=== PATIENT | male | born 1950 | race Caucasian/White ===

== ENCOUNTER 2018-07-22 07:44 | Day surgery (SDC) | payer OTHER ==
[2018-07-22] MEDS ORDERED: LR 1,000 ML IV ONE (08:01)
[2018-07-22] MEDS ORDERED: LIDOCAINE 1% 2 ML INJ ID PRN (08:01)
[2018-07-22] MEDS ORDERED: LIDOCAINE 1% 300 MG/30 ML SDV ONE (08:11)
[2018-07-22] MEDS ORDERED: BACITRACIN ZINC 14.2 GM OINTTUBE TP ONE (08:11)
[2018-07-22] MEDS ORDERED: EPINEPHrine 30 MG/30 ML MDV (0.1 MG/0.1 ML) ONE (08:12)
[2018-07-22] MEDS ORDERED: METHYLENE BLUE 0.5% 50 MG/10 ML AMP ONE (08:12)
[2018-07-22] MEDS ORDERED: MIDAZOLAM 2 MG/2 ML VIAL IVP ONE (09:18)
[2018-07-22] MEDS ORDERED: PROPOFOL 200 MG/20 ML VIAL ONE (09:19)
[2018-07-22] MEDS ORDERED: fentaNYL 100 MCG/2 ML INJ ONE ×2 (09:20→12:00)
[2018-07-22] MEDS ORDERED: CLINDAMYCIN 900 MG/DEXTROSE 50 ML IV ONE (09:21)
[2018-07-22] MEDS ORDERED: DEXAMETHASONE 10 MG/ML VIAL IVP ONE (09:21)
--- NOTE | 2018-07-22 09:21 | PDANEPAE ---
ANE Past Medical History - Cardiovascular History Hx Hypertension: No Hx Arrhythmias: No Hx Chest Pain: No Hx Coronary Artery / Peripheral Vascular Disease: No Hx CHF / Valvular Disease: No Hx Palpitations: No - Pulmonary History Hx COPD: No Hx Asthma/Reactive Airway Disease: No Hx Recent Upper Respiratory Infection: No Hx Oxygen in Use at Home: No Hx Sleep Apnea: Yes Sleep Apnea Screening Result - Last Documented: Positive - Neurologic History Hx Cerebrovascular Accident: No Hx Seizures: No Hx Dementia: No - Endocrine History Hx Diabetes: No - Renal History Hx Renal Disorders: No - Liver History Hx Hepatic Disorders: Yes Hepatic History Comment: hep c recieved treatment and is now clear - Neurological & Psychiatric Hx Hx Neurological and Psychiatric Disorders: Yes Neurological / Psychiatric History Comment: depression/anxiety - Cancer History Hx Cancer: No - Congenital Disorder History Hx Congenital Disorders: No - GI History Hx Gastrointestinal Disorders: No - Other Health History Other Health History: raspy voice - Chronic Pain History Chronic Pain: Yes (LATE STAGE ARTHRITIS BILAT GREAT TOES) - Surgical History Prior Surgeries: none in last 5 yrs. right rotator cuff repair 2007 ANE Review of Systems Review of Systems: - Exercise capacity METS (RN): 5 METS ANE Patient History - Allergies Allergies/Adverse Reactions: Penicillins Allergy (Verified 07/10/18 16:47) Rash IV contrast Allergy (Uncoded 07/10/18 16:47) - Home Medications Home medications: home medication list seen and reviewed Home Medications: Adderall 10 MG (*) 07/10/18 [Last Taken 07/20/18] Aleve 07/10/18 [Last Taken 07/15/18] Buspar (*) 07/10/18 [Last Taken 07/21/18 10:00] Flomax 07/10/18 [Last Taken 07/21/18 22:00] Wellbutrin 100mg (*) 07/10/18 [Last Taken 07/21/18 10:00] Zyrtec 07/10/18 [Last Taken 07/21/18 10:00] - NPO status NPO Status: no food or drink >8 hours NPO Since - Liquids (Date): 07/21/18 NPO Since - Liquids (Time): 23:00 NPO Since - Solids (Date): 07/21/18 NPO Since - Solids (Time): 19:00 - Anes Hx Anes Hx: no prior problems - Smoking Hx Smoking Status: Never smoked - Family Anes Hx Family Hx Anesthesia Complications: slow to wake up ANE Labs/Vital Signs - Vital Signs Blood Pressure: 127/84 Heart Rate: 65 Respiratory Rate: 16 O2 Sat (%): 95 Height: 185.42 cm Weight: 86.183 kg ANE Physical Exam - Airway Neck exam: FROM Mallampati Score: Class 2 - Pulmonary Pulmonary: no respiratory distress, no rales or rhonchi, clear to auscultation - Cardiovascular Cardiovascular: regular rate and rhythym, no murmur, rub, or gallop - ASA Status ASA Status: II ANE Anesthesia Plan Anesthesia Plan: general endotracheal anesthesia
--- NOTE | 2018-07-22 09:21 | PDHPUP ---
History & Physical Update H&P update statement: This history and physical update is based on an assessment of the patient which was completed after admission or registration (within 24 hours), but prior to the surgery/procedure. H&P update: H&P reviewed & patient examined, no change in patient's condition since H&P completed (plan for septoplasty, smr turbs and latera B)
[2018-07-22] MEDS ORDERED: LIDOCAINE 2% 2 ML INJ ONE (09:23)
[2018-07-22] MEDS ORDERED: DEXAMETHASONE 4 MG/ML VIAL ONE ×3 (09:23)
[2018-07-22] MEDS ORDERED: ROCURONIUM 50 MG/5 ML VIAL ONE (09:23)
[2018-07-22] MEDS ORDERED: OXYMETAZOLINE 30 ML NASAL SPRAY ONE (09:43)
[2018-07-22] MEDS ORDERED: LIDO/EPI 2% **for epidural** 20 ML SDV ONE (09:56)
[2018-07-22] MEDS ORDERED: LIDOCAINE 2% 100 MG/5 ML SYR ONE (09:57)
[2018-07-22] MEDS ORDERED: MINERAL OIL 10 ML VIAL ONE (10:35)
[2018-07-22] MEDS ORDERED: NEOSTIGMINE METHYLSULFATE 5 MG/5 ML SYR ONE (10:35)
[2018-07-22] MEDS ORDERED: GLYCOPYRROLATE 0.2 MG/1 ML VIAL ONE ×2 (10:35)
[2018-07-22] MEDS ORDERED: ONDANSETRON 4 MG/2 ML VIAL ONE (10:35)
[2018-07-22] MEDS ORDERED: LABETALOL HCL 5 MG/ML 20 ML MDV IVP PRN (11:17)
[2018-07-22] MEDS ORDERED: oxyCODONE IR 5 MG TAB PO PRN (11:17)
[2018-07-22] MEDS ORDERED: ONDANSETRON 4 MG/2 ML VIAL IVP PRN (11:17)
[2018-07-22] MEDS ORDERED: LR 500 ML IV PRN (11:17)
[2018-07-22] MEDS ORDERED: ACETAMINOPHEN 500 MG TAB PO PRN (11:17)
[2018-07-22] MEDS ORDERED: fentaNYL 100 MCG/2 ML INJ IVP PRN (11:17)
[2018-07-22] MEDS ORDERED: PROMETHAZINE HCL 25 MG/ML INJ IVP PRN (11:17)
[2018-07-22] MEDS ORDERED: HYDROCODONE/APAP 5/325 TAB PO PRN (11:17)
[2018-07-22] MEDS ORDERED: NALOXONE HCL 0.4 MG/ML INJ IVP PRN (11:17)
--- NOTE | 2018-07-22 12:00 | POSTANESTH ---
Post Anesthetic Evaluation Cardiovascular Status: Normal, Stable, Similar to Pre-Op Cond Respiratory Status: Normal, Stable, Similar to Pre-op Cond. Level of Consciousness/Mental Status: Can Participate in Eval, Mildly Sleepy, Arousable Pain Control: Adequate, Prn Tx Ordered Nausea/Vomiting Control: Adequate, Prn Tx Ordered Complications Possibly Related to Anesthesia: None Noted
[2018-07-22] MEDS ORDERED: HYDROCODONE/APAP 5/325 TAB ONE (12:21)
[2018-07-22 15:32] VITALS: BP 117/77
--- NOTE | 2018-07-29 12:04 | GOP ---
DATE OF OPERATION: 07/22/2018 SURGEON: Rosario Lopez MD ANESTHESIA: General. PREOPERATIVE DIAGNOSIS: 1. Nasal obstruction. 2. Deviated nasal septum. 3. Enlarged turbinates bilaterally. 4. Nasal valve collapse bilaterally. POSTOPERATIVE DIAGNOSIS: 1. Nasal obstruction. 2. Deviated nasal septum 3. Enlarged turbinates bilaterally. 4. Nasal valve collapse bilaterally. PROCEDURE PERFORMED: 1. Endoscopically-assisted septoplasty. 2. Submucous resection of the inferior turbinates bilaterally. 3. Latera placement bilaterally. ESTIMATED BLOOD LOSS: Minimal. COMPLICATIONS: None. FINDINGS: The patient was found to have a deviated nasal septum, especially caudally to the left. He did have a large spur inferiorly along the right side that was obstructing on the right. He had moderately enlarged turbinates bilaterally, as well as some internal valve collapse on both sides. It was felt he would benefit from the above procedure. DESCRIPTION OF PROCEDURE: The patient was first seen in the preoperative area, where informed consent was obtained. He was then brought back to operating room , where Anesthesia sedated and intubated him. The bed was turned 90 degrees and he was prepped and draped in a sterile fashion. A universal time-out protocol was performed. Once this was confirmed, I then placed some epi-soaked pledgets within the nares. Once this had sufficient time to act, these were removed and then anterior rhinoscopy was performed, noting the above findings. I initially used some 2% lidocaine with 1:200,000 epinephrine. I injected this into the septum on both sides, as well as the head of the inferior turbinates on both sides. Once this was done and had sufficient time to act, these were removed a the 0 degree scope was used to evaulate both sides of the nose. Then a left-sided hemitransfixion incision was made and a Nereida instrument was used to elevate a mucoperichondrial flap back past the bony cartilaginous junction. He did have a caudal deflection to the left, which then deflected more to the right more posteriorly, along with a large septal spur on the right. Once I had elevated the mucoperichondrial flap on the left past the bony cartilaginous junction, the bony cartilaginous junction was dislocated inferiorly with a Nereida, and then a D knife was used to make an incision from superior to inferior, and posterior to anterior, thereby releasing a square of cartilage. I did take care to leave a centimeter strut dorsally and caudally. The Nereida was then used to elevate the mucoperichondrium off the right side of the cartilage that had been resected until it was completely released and this cartilage was removed. It was sent in some saline for saving in case of need. After this was done, the 0-degree scope was used through the hemitransfixion incision to help with the elevation of the flap more posteriorly. This was done on both sides until the bone was isolated. A double-action rongeur was used to remove the bone that was obstructing until this was midline. He then still had a fairly large spur to the right. A Nereida was used under direct visualization, as well as with the scope to completely release the mucoperichondrium and mucoperiosteal off the bone on both sides. Once this was done, a 2 mm osteotome was used to remove the spur as a whole and this was removed. At this point, the 0-degree scope was used to evaluate the nasal cavity bilaterally. He was noted to be significantly more patent on both sides with removal of the offending septal cartilage and bone. At this point, a 5-0 plain gut on a Red needle was used to place quilting sutures through and through the septum, and then a 4-0 chromic was used to close the hemitransfixion incision using an interrupted fashion. Next, the turbinate blade was placed on the microdebrider and then a small stab incision was made on the left side under direct visualization with the scope, and the turbinate blade was used to perform a submucous resection along the length of the turbinate on the left side, noting this under direct visualization. Once this was done, this was removed and then the same thing was done on the right side along the length of the turbinate. The debrider was removed and then the turbinate was first infractured and then outfractured using a [place], thereby giving significantly more patency to the nasal cavity on both sides. At this point, the 0-degree scope was then used to evaluate the nasal cavity on both sides and he still had slightly bulky posterior inferior turbinates, so suction cautery on a low to intermediate setting was used to cauterize just the very posterior aspect of the turbinate to shrink this down until he had significant patency posteriorly. At this point, the nasal cavity was irrigated out copiously with normal saline and suctioned clear. He had no active bleeding. At this point, I turned my attention to the nasal valve region. I initially used the implant marker to gera out the site of the most distal point of the implant between the dorsal point of the nose and the medial canthus, first on the left and then the right. I also marked the site at the nostril sill where the implant would be inserted from. Once this was done, about 0.5 cc of the 2% lidocaine with 1:200,000 was injected at the nasal sill and along the course of the proposed implant on both sides. At this point, I then allowed some time to let this lidocaine resorb some. Once this had sufficient time to act, the Latera implant was placed in the delivery device and set up. I then used a double-prong skin hook, first on the right side to place some traction over the sill, and then the implant cannula was placed at a 90-degree angle down toward the piriform aperture. Once this was in proper position, it was then angled up over the bone and cartilage, but under the skin while I was tenting the skin, noticing proper placement. Once this distally was at the distal most point, the implant was inserted, releasing it from the cannula and then the cannula was removed. The implant could be felt in the proper position and I did not see any of the implant through the cannula site. The same thing was then done on the left side without any difficulty. At this point, the cannula was removed. Some epi soaked pledgets were placed within the nares bilaterally and then removed after there was no active bleeding. Two Holder splints that had been cut to size were placed on either side of the septum and then this was sutured into place using a 3-0 Prolene. The OG suction was used to suction out the pharynx and the stomach, and then the patient was turned back over to Anesthesia, where he was awoken, extubated, and taken to PACU in stable condition. There were no complications, and he tolerated the procedure well. /[id number]/MODL MTDD
== END 2018-07-22 15:40 | disposition home or self-care (01) ==
LOC: FSGY 07:44
PROVIDERS: ATTEND Otolaryngology
PROC: 09U Ear, Nose, Sinus, Supplement (ICD-10-PCS; principal; 2018-07-22 09:30)
PROC: 09QM4ZZ Repair Nasal Septum, Percutaneous Endoscopic Approach (ICD-10-PCS; principal; 2018-07-22 09:30)
PROC: 09TL4ZZ Resection of Nasal Turbinate, Percutaneous Endoscopic Approach (ICD-10-PCS; principal; 2018-07-22 09:30)
DX: J34.2 Deviated nasal septum (principal); R49.0 Dysphonia; J31.0 Chronic rhinitis; J34.89 Other specified disorders of nose and nasal sinuses
CPT/HCPCS: C9749; J0171; J1100; J2001; J2250; J2405; J2704; J2710; J3010; Q9968

== ENCOUNTER → 2018-09-11 | Outpatient (CLI) | payer OTHER | LOC: BMCIMAGING 16:41 | PROVIDERS: ATTEND Internal Medicine | DX: J44.9 Chronic obstructive pulmonary disease, unspecified (principal) ==

== ENCOUNTER → 2018-11-25 | Outpatient (CLI) | payer OTHER ==
[~2018-11-25] MED LIST: GADOBUTROL 10 ML VIAL IVP ONE
== END ==
LOC: FIMAGING 08:24
PROVIDERS: ATTEND Internal Medicine
DX: R41.3 Other amnesia (principal); F40.240 Claustrophobia; Z53.29 Procedure and treatment not carried out because of patient's decision for other reasons
CPT/HCPCS: 82565-PO; A9585